=== PATIENT | male | born 1965 | race Caucasian/White ===

== ENCOUNTER 2023-04-20 12:31 | Emergency (ER) | payer MEDICARE, MEDICAID, SELFPAY ==
[2023-04-20] VITALS (13 sets, daily range): BP systolic 111–157; BP diastolic 64–89; PULSE 46–53; RESP 14–20; TEMP 36.9; O2SAT 92–97; BMI 32.4
--- NOTE | 2023-04-20 12:54 | DI.RAD.S_ITS ---
PROCEDURE: XR ANKLE LT 2V INDICATIONS: fall, ankle pain TECHNIQUE: 2 views of the ankle were acquired. COMPARISON: None. FINDINGS: Bones: Extensive orthopedic hardware related to remote bimalleolar ORIF. No evidence of hardware failure or loosening. No acute fracture or dislocation identified. No fractures or dislocations. Ankle mortise is normally aligned. No suspicious bony lesions. Soft tissues: No tibiotalar joint effusion. Achilles tendon appears normal. IMPRESSION: No acute fracture or dislocation identified. Dictated by: Will Fields M.D. on 04/20/2023 at 13:56 Approved by: Will Fields M.D. on 04/20/2023 at 14:02
--- NOTE | 2023-04-20 13:46 | DI.CT.S_ITS ---
PROCEDURE: CT HEAD/BRAIN WO CON INDICATIONS: ground level fall, sleepy TECHNIQUE: Noncontrast 4.5 mm thick angled axial sections acquired from the foramen magnum to the vertex, with coronal and sagittal reformats. For radiation dose reduction, the following was used: automated exposure control, adjustment of mA and/or kV according to patient size. COMPARISON: [facility], MR, MR BRAIN WITHOUT CONTRAST, 09/27/2022, 15:44. FINDINGS: Image quality: Excellent. CSF spaces: Basal cisterns are patent. No extra-axial fluid collections. Ventricles are normal in size and shape. Brain: No midline shift. No intracranial masses or hemorrhage. There is prominent right temporoparietal encephalomalacia with overlying craniotomy that is wide in coverage, previously present. This may be associated with prior stroke reported to have occurred in 2011. Pedroza-white matter interface is otherwise normal. Skull and face: Calvarium and visualized facial bones are intact, without suspicious lesions. Sinuses: Visualized sinuses and mastoids are clear. IMPRESSION: Extensive right hemispheric encephalomalacia with a wide right temporal parietal craniotomy been previously present but no acute disease. Dictated by: Lanre Grullon M.D. on 04/20/2023 at 14:16 Approved by: Lanre Grullon M.D. on 04/20/2023 at 14:18
--- NOTE | 2023-04-20 14:02 | ED.FALL ---
HPI - Fall <Claudia Mason PA-C - Last Filed: 04/20/23 14:55> General Chief Complaint: Fall Stated Complaint: GLF from chair. no thinners, + laceration Time Seen by Provider: 04/20/23 13:28 Source: patient and EMS Mode of arrival: EMS History of Present Illness HPI Narrative: 57-year-old male with past history of stroke and seizures presents after ground level fall from his wheelchair today at his senior living facility. He reports that the foot rest was malpositioned and he slid out of his wheelchair, hitting the back of his head but did not lose consciousness. He remembers the entire incident. He does not take any blood thinners. He is complaining of mild tenderness of his left ankle, where he is had previous surgery and hardware. He also has small abrasions on his left hand from the fall. He is accompanied by his daughter and who are concerned that he is more sleepy than usual. Related Data Allergies Allergy/AdvReac Type Severity Reaction Status Date / Time No Known Drug Allergies Allergy Verified 04/20/23 13:35 Review of Systems <Claudia Mason PA-C - Last Filed: 04/20/23 14:55> Review of Systems ROS Unobtainable: All systems reviewed & are unremarkable except as noted in HPI and below Patient History <Claudia Mason PA-C - Last Filed: 04/20/23 14:55> Social History Smoking Status: Never smoker Smoking Status: Never smoker Substance Use Type: does not use Exam <Claudia Mason PA-C - Last Filed: 04/20/23 14:55> Narrative Exam Narrative: GENERAL: 57 year old patient appears stated age. Well-developed patient, in no distress. NEURO: AOx3. HEAD: Atraumatic. Concavity on left skull status post neurosurgery. Area is soft. 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 Extraocular motions intact. No scleral icterus. No injection or drainage. CARDIOVASCULAR: Regular rate and rhythm without murmurs, gallops, or rubs. RESPIRATORY: Clear to auscultation. Breath sounds equal bilaterally. No wheezes, rales, or rhonchi. GASTROINTESTINAL: Abdomen soft, non-tender, nondistended. EXTREMITIES: Left ankle is mildly tender to palpation, patient does not bear weight on this leg at baseline. SKIN: No rash or erythema of visible areas Initial Vital Signs Initial Vital Signs: Vital Signs Temperature 98.4 F 04/20/23 12:46 Pulse Rate 52 L 04/20/23 12:46 Respiratory Rate 20 04/20/23 12:46 Blood Pressure 114/64 04/20/23 12:46 Pulse Oximetry 96 04/20/23 12:46 Oxygen Delivery Method Room Air 04/20/23 12:46 <Kathy Antony DO - Last Filed: 04/20/23 19:33> Initial Vital Signs Initial Vital Signs: Vital Signs Temperature 98.4 F 04/20/23 12:46 Pulse Rate 52 L 04/20/23 12:46 Respiratory Rate 20 04/20/23 12:46 Blood Pressure 114/64 04/20/23 12:46 Pulse Oximetry 96 04/20/23 12:46 Oxygen Delivery Method Room Air 04/20/23 12:46 Course <Claudia Mason PA-C - Last Filed: 04/20/23 14:55> Orders Ordered: ED Orders 04/20/23 12:54 XR ankle LT 2V Stat 04/20/23 13:46 CT head/brain wo con Stat Vital Signs Vital signs: Vital Signs - 8 hr 04/20/23 12:46 04/20/23 13:27 04/20/23 13:30 Temperature 98.4 F Pulse Rate 52 L 48 L Respiratory Rate 20 Blood Pressure 114/64 116/69 Pulse Oximetry 96 94 Oxygen Delivery Method Room Air 04/20/23 13:30 04/20/23 14:07 04/20/23 14:08 Temperature Pulse Rate 52 L 53 L Respiratory Rate 14 Blood Pressure 157/89 H Pulse Oximetry 95 92 Oxygen Delivery Method Room Air 04/20/23 14:08 04/20/23 14:30 04/20/23 14:31 Temperature Pulse Rate 52 L 46 L Respiratory Rate Blood Pressure 135/79 Pulse Oximetry 96 95 Oxygen Delivery Method 04/20/23 14:31 04/20/23 14:59 04/20/23 15:00 Temperature Pulse Rate 48 L 46 L Respiratory Rate Blood Pressure 132/74 Pulse Oximetry 94 95 Oxygen Delivery Method 04/20/23 15:00 08/11/23 15:30 04/20/23 15:30 Temperature Pulse Rate 47 L 52 L Respiratory Rate Blood Pressure 140/79 Pulse Oximetry 94 94 Oxygen Delivery Method 04/20/23 16:00 04/20/23 16:00 04/20/23 16:30 Temperature Pulse Rate 53 L 49 L Respiratory Rate Blood Pressure 149/89 H Pulse Oximetry 96 96 Oxygen Delivery Method 04/20/23 16:31 04/20/23 16:31 Temperature Pulse Rate 48 L Respiratory Rate Blood Pressure 111/66 Pulse Oximetry 97 Oxygen Delivery Method <Kathy Antony, DO - Last Filed: 04/20/23 19:33> Orders Ordered: ED Orders 04/20/23 12:54 XR ankle LT 2V Stat 04/20/23 13:46 CT head/brain wo con Stat Vital Signs Vital signs: Vital Signs - 8 hr 04/20/23 12:46 04/20/23 13:27 04/20/23 13:30 Temperature 98.4 F Pulse Rate 52 L 48 L Respiratory Rate 20 Blood Pressure 114/64 116/69 Pulse Oximetry 96 94 Oxygen Delivery Method Room Air 04/20/23 13:30 04/20/23 14:07 04/20/23 14:08 Temperature Pulse Rate 52 L 53 L Respiratory Rate 14 Blood Pressure 157/89 H Pulse Oximetry 95 92 Oxygen Delivery Method Room Air 04/20/23 14:08 04/20/23 14:30 04/20/23 14:31 Temperature Pulse Rate 52 L 46 L Respiratory Rate Blood Pressure 135/79 Pulse Oximetry 96 95 Oxygen Delivery Method 04/20/23 14:31 04/20/23 14:59 04/20/23 15:00 Temperature Pulse Rate 48 L 46 L Respiratory Rate Blood Pressure 132/74 Pulse Oximetry 94 95 Oxygen Delivery Method 04/20/23 15:00 04/20/23 15:30 04/20/23 15:30 Temperature Pulse Rate 47 L 52 L Respiratory Rate Blood Pressure 140/79 Pulse Oximetry 94 94 Oxygen Delivery Method 04/20/23 16:00 04/20/23 16:00 04/20/23 16:30 Temperature Pulse Rate 53 L 49 L Respiratory Rate Blood Pressure 149/89 H Pulse Oximetry 96 96 Oxygen Delivery Method 04/20/23 16:31 04/20/23 16:31 Temperature Pulse Rate 48 L Respiratory Rate Blood Pressure 111/66 Pulse Oximetry 97 Oxygen Delivery Method MDM - Fall <Claudia Mason PA-C - Last Filed: 04/20/23 14:55> Lab Data Labs: Urine Dip Bedside Urine Glucose Negative Bedside Urine Bilirubin - Negative Bedside Urine Ketone - Negative Urine Specific [place] 1.015 Bedside Urine Occult Blood - Negative Bedside Urine pH 6.5 Bedside Urine Protein - Negative Bedside Urine Urobilinogen - Negative Bedside Urine Nitrite - Negative Bedside Urine Leukocytes - Negative Esterase Imaging Data Extremity x-ray #1: Radiologist's Impression: PROCEDURE:? XR ANKLE LT 2V ? INDICATIONS:? fall, ankle pain ? TECHNIQUE:? 2 views of the ankle were acquired.? ? COMPARISON:? None. ? FINDINGS:? ? Bones:? Extensive orthopedic hardware related to remote bimalleolar ORIF.? No evidence of hardware failure or loosening.? No acute fracture or dislocation identified.? No fractures or dislocations.? Ankle mortise is normally aligned.? No suspicious bony lesions.? ? Soft tissues:? No tibiotalar joint effusion.? Achilles tendon appears normal.? ? ? IMPRESSION:? No acute fracture or dislocation identified. ? Dictated by: Will Fields M.D. on 04/20/2023 at 13:56 ? ? Approved by: Will Fields M.D. on 04/20/2023 at 14:02 CT scan - head: Radiologist's Impression: PROCEDURE:? CT HEAD/BRAIN WO CON ? INDICATIONS:? ground level fall, sleepy ? TECHNIQUE:? Noncontrast 4.5 mm thick angled axial sections acquired from the foramen magnum to the vertex, with coronal and sagittal reformats.? For radiation dose reduction, the following was used:? automated exposure control, adjustment of mA and/or kV according to patient size.? ? COMPARISON:? [facility], MR, MR BRAIN WITHOUT CONTRAST, 09/27/2022, 15:44. ? FINDINGS:? Image quality:? Excellent.? ? CSF spaces:? Basal cisterns are patent.? No extra-axial fluid collections.? Ventricles are normal in size and shape.? ? Brain:? No midline shift.? No intracranial masses or hemorrhage.? There is prominent right temporoparietal encephalomalacia with overlying craniotomy that is wide in coverage, previously present.? This may be associated with prior stroke reported to have occurred in 2012.? Pedroza-white matter interface is otherwise normal.? ? Skull and face:? Calvarium and visualized facial bones are intact, without suspicious lesions.? ? Sinuses:? Visualized sinuses and mastoids are clear.? ? IMPRESSION:? Extensive right hemispheric encephalomalacia with a wide right temporal parietal craniotomy been previously present but no acute disease. ? ? Dictated by: Lanre Grullon M.D. on 04/20/2023 at 14:16 ? ? Approved by: Lanre Grullon M.D. on 04/20/2023 at 14:18 MDM Narrative Medical decision making narrative: Multiple etiologies for patient's symptoms considered including, but not limited to: Loss of consciousness, syncope, head bleed. Patient is oriented and able to tell the story of his incident today, but does seem more sleepy than usual according to his and daughter. He otherwise reports feeling well. Spoke with Delphine at his nursing facility who reports he was out on the patio this morning apparently rolled off the patio when his wheelchair and then fell out of his chair when his wheelchair went from the concrete to the grass. Delphine reports he frequently is inpatient and tries to do things beyond his abilities without the staff present. and daughter also concerned that he is not watched closely enough at his facility and he gets inpatient and tries to transfer or ambulate in a way that is unsafe. Head CT today with no acute findings, radiology notes it was compared to recent MRI and appears stable. Patient remains oriented and conversant, although sleepy, in the emergency room. x-ray of his left ankle shows no acute findings. Patient's symptoms improved over duration of stay with above-stated therapies. Findings and discharge diagnosis discussed with patient/family followed by verbalization of understanding Return precautions discussed with patient/family whom verbalize understanding of diagnosis and plan <Kathy Antony, DO - Last Filed: 04/20/23 19:33> Lab Data Labs: Urine Dip Bedside Urine Glucose Negative Bedside Urine Bilirubin - Negative Bedside Urine Ketone - Negative Urine Specific [place] 1.015 Bedside Urine Occult Blood - Negative Bedside Urine pH 6.5 Bedside Urine Protein - Negative Bedside Urine Urobilinogen - Negative Bedside Urine Nitrite - Negative Bedside Urine Leukocytes - Negative Esterase Discharge Plan Departure Patient Disposition: SNF Clinical Impression: Fall Activity Restrictions/Additional Instructions: *You have been diagnosed with a fall from wheelchair. *What to do: *Please continue to take your regular medications as directed. [ ] New medication prescriptions sent to your pharmacy: [ ] [ ] New medication written as a paper prescription [x ] No new medications given *Please follow up with your primary care provider in 2-3 days, call for an appointment. Let them know you were seen in the Emergency Department and that we ask that you be seen in follow up. We will electronically transmit a record of today's note if your PCP is in our system *If you do not have a primary care provider please contact the [facility] Resource line at [phone]. They will ask some questions about your medical history and help get you set up with a doctor in the community. *Return to Emergency Department if you should have any new, worsening or concerning symptoms, such as [fever greater than 101 F, shaking chills, worsening pain, persistent vomiting or other bothersome symptoms] SNF Discharge Plan Transportation: [facility] I certify the postop hospital senior living care is medically necessary on a continuing basis for any conditions for which he/ she received care during this hospitalization.: Yes The receiving facility has agreed to accept transfer and provide medical treatment.: Yes Discharge Health Status Precautions: [place] <aKthy Antony DO - Last Filed: 04/20/23 19:33> [place] ED Attending Gray Attestation: I was immediately available in the department for consultation. Documentation has been reviewed. Case was discussed.
== END 2023-04-20 17:12 ==
PROVIDERS: Emergency Provider Physician Assistant; PCP Family Medicine
DX: S09.90XA Unspecified injury of head, initial encounter (principal); M25.572 Pain in left ankle and joints of left foot; W05.0XXA Fall from non-moving wheelchair, initial encounter
CPT/HCPCS: 70450; 73600; 81003; 99283; 99284